=== PATIENT | female | born 1980 | race Caucasian/White ===

== ENCOUNTER 2017-06-13 05:37 | Day surgery (SDC) | payer BC ==
[~2017-06-13] VITALS: Ht 182.9 cm; Wt 61.2 kg
--- NOTE | ~2017-06-13 | EGD ---
EGD REPORT [facility] [address] [id number] NAME: KRYSTINA SALINAS : [birth year] STATUS : REG [facility] [place] PAT#: [id number] AGE: 37 ADM/REG DATE : 06/13/17 MR#: [id number] REPORT SERV DATE: 06/15/17 DICTATED BY: DATE: REPORT STATUS : Draft TRANSCRIBED BY: [employer] DATE: 06/15/17 [facility] Patient Name: Krystina Salinas Date of : 1980 Attending MD: SUSIE LAI MD Procedure Date No Time: 06/13/2017 Procedure: Colonoscopy Indications: Hematochezia Medicines: Monitored Anesthesia Care Complications: No immediate complications. Procedure: Pre-Anesthesia Assessment: - ASA Grade Assessment: I - A normal, healthy patient. After I obtained informed consent, the scope was passed under direct vision. Throughout the procedure, the patient's blood pressure, pulse, and oxygen saturations were monitored continuously. The PCF [id number] was introduced through the anus and advanced to the cecum, identified by appendiceal orifice and ileocecal valve. The colonoscopy was performed without difficulty. The patient tolerated the procedure well. The quality of the bowel preparation was excellent. Findings: The perianal and digital rectal examinations were normal. A pedunculated polyp was found at 30 cm proximal to the anus. The polyp was large in size. The polyp was removed with a hot snare. Resection and retrieval were complete. Injection (tattooing) chromoscopy with Berta ink was performed. One hemostatic clip was successfully placed. There is no endoscopic evidence of diverticula, inflammation, mass, ulcerations or angioectasia in the entire colon. No additional abnormalities were found on retroflexion. Impression: - One large polyp at 30 cm proximal to the anus. Resected and retrieved. Chromoscopy performed. Clip was placed. Recommendation: - Patient has a contact number available for emergencies. The signs and symptoms of potential delayed complications were discussed with the patient. Return to normal activities tomorrow. Written discharge instructions were provided to the patient. - Return to previous diet. - Discharge patient to home. - Continue present medications. - Await pathology results. EGD REPORT [address] [address] NAME: KRYSTINA SALINAS : [birth year] STATUS : REG [facility]#: [id number] AGE: 37 ADM/REG DATE : 06/13/17 MR#: [id number] REPORT SERV DATE: 06/15/17 DICTATED BY: DATE: REPORT STATUS : Draft TRANSCRIBED BY: [employer] DATE: 06/15/17 - Repeat colonoscopy in 2 years for surveillance based on pathology results. Procedure Code(s): --- Professional --- 48899, Colonoscopy, flexible, proximal to splenic flexure; with removal of tumor(s), polyp(s), or other lesion(s) by snare technique 34047, Colonoscopy, flexible, proximal to splenic flexure; with directed submucosal injection(s), any substance Diagnosis Code(s): --- Professional --- D12.6, Benign neoplasm of colon, unspecified K92.1, Melena CPT copyright 2013 [employer]. All rights reserved. The codes documented in this report are preliminary and upon sketch liner review may be revised to meet current compliance requirements. SUSIE LAI MD 06/13/2017 8:04 AM This report has been signed electronically. Number of Addenda: 0 Note Initiated On: 06/13/2017 7:16 AM Scope Withdrawal Time 0 hours 17 minutes 19 seconds [id number] [id number]
[~2017-06-13 05:37] MED LIST: *DENIES
== END 2017-06-13 23:59 | disposition home or self-care (01) ==
LOC: DMU 05:37
PROVIDERS: Internal Medicine Gastroenterology
PROC: 3E0H8GC Introduction of Other Therapeutic Substance into Lower GI, Via Natural or Artificial Opening Endoscopic (ICD-10-PCS; 2017-06-13)
PROC: 0DBE8ZX Excision of Large Intestine, Via Natural or Artificial Opening Endoscopic, Diagnostic (ICD-10-PCS; principal; 2017-06-13 07:30)
DX: D12.6 Benign neoplasm of colon, unspecified (principal); Z88.5 Allergy status to narcotic agent; Z98.890 Other specified postprocedural states
CPT/HCPCS: 84703; 88305